=== PATIENT | male | born 1935 | race Caucasian/White ===

== ENCOUNTER 2021-10-19 03:48 | Emergency (ER) | payer MEDICARE, BC ==
[2021-10-19] MEDS ORDERED: HYDROmorphone 1 MG/ML Syringe IVPUSH ONE (04:27)
[2021-10-19] MEDS ORDERED: Iopamidol 612 MG/ML 100 ML Bottle IVPUSH ONE (04:27)
[2021-10-19] MEDS ORDERED: Ondansetron 4 MG/2 ML SDV IVPUSH ONE (04:28)
[2021-10-19 05:07] LABS: ANION GAP 13.1 mEq/L (7-13)
[2021-10-19 05:14] LABS: PTT,PARTIAL THROMBOPLSTIN TIME 29.9 SEC (22.0-34.0)
[2021-10-19 05:39] LABS: CORONAVIRUS COVID-19 NAA NEGATIVE (NEGATIVE)
[2021-10-19] MEDS ORDERED: cefTRIAXone 1 GM in Sodium Chloride 0.9% 50 ML IV ONE (05:40)
[2021-10-19] MEDS ORDERED: Clindamycin in 0.9 % Sod Chlor 600 MG in Premix Bag 1 BAG IV ONE ×2 (05:40)
[2021-10-19] MEDS ORDERED: Sodium Chloride 0.9% 500 ML IV ONE (05:43)
[2021-10-19] MEDS ORDERED: methylPREDNISolone Sodium Succinate 125 MG/2 ML SDV IVPUSH ONE (05:49)
== END 2021-10-19 07:25 ==
LOC: DL.ED 03:48
DX: R13.13 Dysphagia, pharyngeal phase (principal); I88.8 Other nonspecific lymphadenitis; I48.91 Unspecified atrial fibrillation; N40.0 Benign prostatic hyperplasia without lower urinary tract symptoms; Z79.01 Long term (current) use of anticoagulants; Z79.899 Other long term (current) drug therapy; Z20.822 Contact with and (suspected) exposure to COVID-19
CPT/HCPCS: 0240U; 36415; 70491; 80053; 83605; 85025; 85610; 85730; 86140; 87081; 87430; 96365; 96367; 96375; 99285; J0696; J1170; J2405; J2930; J7030; Q9967

== ENCOUNTER 2021-11-14 10:32 | Emergency (ER) | payer MEDICARE, BC | END 2021-11-14 11:18 | disposition home or self-care (01) | LOC: DL.ED 10:32 | DX: A04.72 Enterocolitis due to Clostridium difficile, not specified as recurrent (principal); I48.91 Unspecified atrial fibrillation; Z95.0 Presence of cardiac pacemaker; Z79.01 Long term (current) use of anticoagulants; Z79.899 Other long term (current) drug therapy | CPT/HCPCS: 99283; 99284 ==

== ENCOUNTER 2023-11-21 15:02 | Emergency (ER) | payer MEDICARE, BC ==
[2023-11-21] MEDS: Bacitracin Oint 1 GM U/D Packet TOP ONE (15:39)
[2023-11-21] MEDS: Acetaminophen 325 MG Tab PO ONE (15:39)
[2023-11-21] MEDS: Acetaminophen/HYDROcodone 325-5 MG Tab PO ONE (15:40)
== END 2023-11-21 15:57 | disposition home or self-care (01) ==
LOC: DL.ED 15:02
DX: S80.12XA Contusion of left lower leg, initial encounter (principal); I48.91 Unspecified atrial fibrillation; Z87.891 Personal history of nicotine dependence; Z95.0 Presence of cardiac pacemaker; Z79.01 Long term (current) use of anticoagulants; Z79.899 Other long term (current) drug therapy; Z79.51 Long term (current) use of inhaled steroids; W22.8XXA Striking against or struck by other objects, initial encounter
CPT/HCPCS: 99283; A9270

== ENCOUNTER 2023-11-24 08:53 | Emergency (ER) | payer MEDICARE, BC ==
[2023-11-24] MEDS: cefTRIAXone 1 GM Vial IM ONE (09:46)
[2023-11-24] MEDS: Lidocaine 1% 5 ML VIAL ONE (09:46)
== END 2023-11-24 10:19 | disposition home or self-care (01) ==
LOC: DL.ED 08:53
DX: L03.116 Cellulitis of left lower limb (principal); M79.81 Nontraumatic hematoma of soft tissue
CPT/HCPCS: 96372; 99283; J0696; J3490

== ENCOUNTER 2024-02-01 15:47 | Emergency (ER) | payer MEDICARE, BC ==
[2024-02-01] MEDS ORDERED: Sodium Chloride 0.9% 10 ML Syringe FLUSH PRN (16:00)
[2024-02-01 16:29] LABS: BASOPHILS PERCENT AUTO 0.3 % (0.0-1.0); EOSINOPHILS PERCENT AUTO 0.7 % (1.0-3.0); HEMATOCRIT 36.1 % (40.0-54.0); HEMOGLOBIN 11.5 g/dL (14.0-18.0); LYMPHOCYTES PERCENT AUTO 9.3 % (20.5-50.1); MEAN CORPUSCULAR HEMOGLOBIN 31.7 pg (27.0-34.0); MEAN CORPUSCULAR HGB CONC 31.9 g/dL (33.0-35.0); MEAN CORPUSCULAR VOLUME 99.4 fL (80-100); MONOCYTES PERCENT AUTO 5.9 % (2-8); NEUTROPHILS PERCENT AUTO 83.8 % (42.2-75.2); PLATELET COUNT,PLT 301 10^3/uL (150-450); RED BLOOD CELL COUNT 3.63 10^6/uL (4.6-6.2); WHITE BLOOD CELL COUNT,WBC 12.2 10^3/uL (5.0-10.0)
[2024-02-01 16:46] LABS: B-TYPE NATRIURETIC PEPTIDE,BNP 147 pg/ml (0-100)
[2024-02-01 16:48] LABS: INR 1.7 (0.9-1.2); PTT,PARTIAL THROMBOPLSTIN TIME 42.3 SEC (22.0-34.0)
[2024-02-01 16:52] LABS: ALANINE AMINOTRANSFERASE,ALT 26 U/L (16-63); ALKALINE PHOSPHATASE 47 U/L (46-116); ANION GAP 13.1 mEq/L (7-13); ASPARTATE AMNIOTRANSFERASE,AST 21 U/L (15-37); BLOOD UREA NITROGEN,BUN 23 mg/dL (7-18); BUN/CREATININE RATIO 16.2 (No establ ref range); C-REACTIVE PROTEIN 9.69 ng/dL (<=0.50); CALCIUM 9.6 mg/dL (8.5-10.1); CARBON DIOXIDE,CO2 28 mmol/L (21-32); CHLORIDE,CL 106 mmol/L (98-107); CREATININE 1.42 mg/dL (0.70-1.30); GLUCOSE RANDOM 127 mg/dL (70-99); POTASSIUM,K 4.1 mmol/L (3.5-5.1); PROTEIN TOTAL,TP 7.4 g/dL (6.4-8.2); SODIUM,NA 143 mmol/L (136-145)
[2024-02-01 16:53] LABS: LACTIC ACID 1.8 mmol/L (0.4-2.0)
[2024-02-01 16:54] LABS: A/G RATIO 0.68; ESTIMATED GFR 48 mL/min (>=60)
[2024-02-01] MEDS: Furosemide 40 MG/4 ML VIAL IV ONE (17:18)
[2024-02-01] MEDS: Amoxicillin/Clavulanate K 875-125 MG Tab PO ONE (17:28)
[2024-02-01] MEDS: Doxycycline Monohydrate 100 MG Cap PO ONE (17:28)
== END 2024-02-01 17:45 | disposition home or self-care (01) ==
LOC: DL.ED 15:47
DX: J18.9 Pneumonia, unspecified organism (principal); I50.9 Heart failure, unspecified; J90 Pleural effusion, not elsewhere classified
CPT/HCPCS: 36415; 71046; 80053; 83605; 83880; 84145; 84484; 85025; 85610; 85730; 86140; 87040; 87804; 96374; 99285; A9270; J1940; U0002

== ENCOUNTER 2024-02-03 14:42 | Emergency (ER) | payer MEDICARE, BC ==
[2024-02-03] MEDS ORDERED: Sodium Chloride 0.9% 10 ML Syringe FLUSH PRN (15:13)
[2024-02-03 15:43] LABS: BASOPHILS PERCENT AUTO 0.3 % (0.0-1.0); HEMATOCRIT 34.9 % (40.0-54.0); HEMOGLOBIN 11.2 g/dL (14.0-18.0); LYMPHOCYTES PERCENT AUTO 8.7 % (20.5-50.1); MEAN CORPUSCULAR HEMOGLOBIN 31.6 pg (27.0-34.0); MEAN CORPUSCULAR HGB CONC 32.1 g/dL (33.0-35.0); MEAN CORPUSCULAR VOLUME 98.6 fL (80-100); MONOCYTES PERCENT AUTO 5.4 % (2-8); NEUTROPHILS PERCENT AUTO 84.6 % (42.2-75.2); PLATELET COUNT,PLT 277 10^3/uL (150-450); RED BLOOD CELL COUNT 3.54 10^6/uL (4.6-6.2); WHITE BLOOD CELL COUNT,WBC 11.6 10^3/uL (5.0-10.0)
[2024-02-03 16:05] LABS: A/G RATIO 0.64; ALANINE AMINOTRANSFERASE,ALT 29 U/L (16-63); ALBUMIN 2.8 g/dL (3.4-5.0); ALKALINE PHOSPHATASE 47 U/L (46-116); ANION GAP 9.7 mEq/L (7-13); ASPARTATE AMNIOTRANSFERASE,AST 30 U/L (15-37); BILIRUBIN TOTAL 0.8 mg/dL (0.2-1.0); BLOOD UREA NITROGEN,BUN 20 mg/dL (7-18); BUN/CREATININE RATIO 13.2 (No establ ref range); C-REACTIVE PROTEIN 6.97 ng/dL (<=0.50); CALCIUM 9.4 mg/dL (8.5-10.1); CARBON DIOXIDE,CO2 30 mmol/L (21-32); CHLORIDE,CL 101 mmol/L (98-107); CREATININE 1.52 mg/dL (0.70-1.30); EST CRCL DRUG DOSING (CG) 32.62 mL/min; ESTIMATED GFR 44 mL/min (>=60); GLUCOSE RANDOM 128 mg/dL (70-99); MAGNESIUM 1.6 mg/dL (1.8-2.4); POTASSIUM,K 3.7 mmol/L (3.5-5.1); PROTEIN TOTAL,TP 7.2 g/dL (6.4-8.2); SODIUM,NA 137 mmol/L (136-145)
[2024-02-03 16:06] LABS: LACTIC ACID 1.5 mmol/L (0.4-2.0)
[2024-02-03 16:14] LABS: INR 1.6 (0.9-1.2); PROTHROMBIN TIME 15.7 SEC (9.0-12.0); PTT,PARTIAL THROMBOPLSTIN TIME 36.8 SEC (22.0-34.0)
[2024-02-03 16:16] LABS: B-TYPE NATRIURETIC PEPTIDE,BNP 122 pg/ml (0-100)
[2024-02-03] MEDS: Albuterol/Ipratropium 3.0-0.5 MG/3 ML Neb Soln NEB ONE (17:11)
[2024-02-03] MEDS: Magnesium Sulfate/Water Premix 2 GM in Premix Bag 1 BAG IV ONE (18:43)
== END 2024-02-03 20:30 | disposition home or self-care (01) ==
LOC: DL.ED 14:42
DX: J90 Pleural effusion, not elsewhere classified (principal); I50.9 Heart failure, unspecified; R09.89 Other specified symptoms and signs involving the circulatory and respiratory systems; I48.91 Unspecified atrial fibrillation; Z79.01 Long term (current) use of anticoagulants; Z79.899 Other long term (current) drug therapy
CPT/HCPCS: 36415; 71046; 80053; 83605; 83735; 83880; 84145; 84484; 85025; 85610; 85730; 86140; 87040; 93005; 93010; 96365; 99284; 99285-25; J3475; J7620-GY

== ENCOUNTER 2024-04-01 10:09 | Emergency (ER) | payer MEDICARE, BC ==
[2024-04-01] MEDS ORDERED: Sodium Chloride 0.9% 10 ML Syringe FLUSH PRN (10:23)
[2024-04-01] MEDS ORDERED: Naloxone 2 MG/2 ML Syringe IVPUSH PRN (10:30)
[2024-04-01 10:33] LABS: BASOPHILS PERCENT AUTO 0.3 % (0.0-1.0); EOSINOPHILS PERCENT AUTO 2.7 % (1.0-3.0); HEMATOCRIT 38.1 % (40.0-54.0); MEAN CORPUSCULAR HEMOGLOBIN 30.2 pg (27.0-34.0); MEAN CORPUSCULAR HGB CONC 31.5 g/dL (33.0-35.0); MEAN CORPUSCULAR VOLUME 95.7 fL (80-100); MONOCYTES PERCENT AUTO 6.2 % (2-8); NEUTROPHILS PERCENT AUTO 73.8 % (42.2-75.2); PLATELET COUNT,PLT 249 10^3/uL (150-450); RED BLOOD CELL COUNT 3.98 10^6/uL (4.6-6.2); WHITE BLOOD CELL COUNT,WBC 11.1 10^3/uL (5.0-10.0)
[2024-04-01 10:48] LABS: INR 1.7 (0.9-1.2); PROTHROMBIN TIME 17.1 SEC (9.0-12.0); PTT,PARTIAL THROMBOPLSTIN TIME 41.7 SEC (22.0-34.0)
[2024-04-01 10:58] LABS: APPEARANCE,URINE CLEAR (CLEAR); BILIRUBIN,URINE NEGATIVE (NEGATIVE); COLOR,URINE YELLOW (YELLOW); GLUCOSE,URINE NEGATIVE (NEGATIVE); KETONES,URINE NEGATIVE (NEGATIVE); LEUKOCYTE ESTERASE,URINE NEGATIVE (NEGATIVE); NITRITE,URINE NEGATIVE (NEGATIVE); OCCULT BLOOD,URINE SMALL (NEGATIVE); PROTEIN,URINE NEGATIVE (NEGATIVE); UROBILINOGEN,URINE 0.2 mg/dL (0.2-1.0)
[2024-04-01 10:59] LABS: ALANINE AMINOTRANSFERASE,ALT 18 U/L (16-63); ALKALINE PHOSPHATASE 46 U/L (46-116); ANION GAP 10.7 mEq/L (7-13); ASPARTATE AMNIOTRANSFERASE,AST 21 U/L (15-37); BILIRUBIN TOTAL 0.9 mg/dL (0.2-1.0); BLOOD UREA NITROGEN,BUN 18 mg/dL (7-18); BUN/CREATININE RATIO 14.3 (No establ ref range); CALCIUM 9.3 mg/dL (8.5-10.1); CARBON DIOXIDE,CO2 29 mmol/L (21-32); CHLORIDE,CL 104 mmol/L (98-107); CREATININE 1.26 mg/dL (0.70-1.30); GLUCOSE RANDOM 119 mg/dL (70-99); LIPASE 46 U/L (16-77); MAGNESIUM 1.7 mg/dL (1.8-2.4); POTASSIUM,K 3.7 mmol/L (3.5-5.1); PROTEIN TOTAL,TP 7.2 g/dL (6.4-8.2); SODIUM,NA 140 mmol/L (136-145); TSH ULTRASENSITIVE 2.76 uIU/mL (0.36-3.74)
[2024-04-01 11:00] LABS: B-TYPE NATRIURETIC PEPTIDE,BNP 217 pg/ml (0-100)
[2024-04-01 11:02] LABS: AMPHETAMINES,URINE NEGATIVE (NEGATIVE); BARBITURATES,URINE NEGATIVE (NEGATIVE); BENZODIAZEPINE,URINE NEGATIVE (NEGATIVE); MDMA (ECSTASY), URINE NEGATIVE (NEGATIVE); METHADONE,URINE NEGATIVE (NEGATIVE); METHAMPHETAMINES,URINE NEGATIVE (NEGATIVE); OPIATES,URINE NEGATIVE (NEGATIVE); OXYCODONE,URINE NEGATIVE (NEGATIVE); PHENCYCLIDINE,URINE NEGATIVE (NEGATIVE); TCA,URINE NEGATIVE (NEGATIVE)
[2024-04-01 11:02] LABS: A/G RATIO 0.71; ESTIMATED GFR 56 mL/min (>=60)
[2024-04-01] MEDS: Morphine 2 MG/ML SYRINGE IVPUSH ONE (11:05)
[2024-04-01] MEDS: Aspirin 81 MG Tab.Chew PO ONE (11:08)
[2024-04-01] MEDS: Iopamidol 755 Mg/ML 100 ML Bottle IV ONE (11:10)
[2024-04-01] MEDS ORDERED: Iopamidol 612 MG/ML 100 ML Bottle IVPUSH ONE (11:10)
[2024-04-01 11:11] LABS: BACTERIA,URINE OCCASIONAL /HPF (0-FEW/HPF); EPITHELIAL CELLS,URINE RARE /HPF (NOT SEEN); MUCUS,URINE FEW /LPF (NOT SEEN); WBC,URINE NOT SEEN /HPF (0-5/HPF)
[2024-04-01] MEDS: Sodium Chloride 0.9% 500 ML IV ONE (12:31)
[2024-04-01] MEDS ORDERED: Ketorolac 30 MG/ML SDV ONE (13:45)
[2024-04-01] MEDS: Ketorolac 30 MG/ML SDV IVPUSH ONE (13:47)
== END 2024-04-01 14:27 | disposition home or self-care (01) ==
LOC: DL.ED 10:09 → DL.MS 13:27 → UNDOADMOB 13:27 → DL.ED 14:27
DX: R07.89 Other chest pain (principal)
CPT/HCPCS: 36415; 71046; 71275; 74177; 80053; 80305; 81001; 83690; 83735; 83880; 84443; 84484; 85025; 85379; 85610; 85730; 93005; 96365; 96375; 99285; A9270; J1885; J2270; J3475; J7030; Q9967; 93010; 99284